=== PATIENT | female | born 1960 | race Caucasian/White ===

== ENCOUNTER 2016-12-24 14:16 | Emergency (ER) | payer OTHER ==
[~2016-12-24] VITALS: Ht 165.1 cm; Wt 100.4 kg
[~2016-12-24 14:16] MED LIST: ADVA500A INH; ATOR10TA15 PO; B-COINJ IM; CELE50CA PO; ERGO1CAP10 PO; FEXO1TAB97 PO; IBUP800T23 PO; LYRI75CA PO; MONT10TA2 PO; ROBA500T PO; TRIA1SPR5 EACH NARE; VENL75TA PO
[2016-12-24 14:38] VITALS: BP 130/80; PULSE 90; RESP 18; TEMP 99; O2SAT 95
[2016-12-24] MEDS ORDERED: TETANUS/DIPHTHERIA TOXOID ADULT 0.5 ML VIAL IM ONE (15:45)
--- NOTE | 2016-12-24 16:08 | PD ---
HPI Chief Complaint: Laceration/Skin Injury Time Seen by Provider: 16:06 Travel History International Travel<30 days: No Contact w/Intl Traveler<30days: No Traveled to known affect area: No History of Present Illness HPI 56-year-old female presents to the emergency room for evaluation of laceration to her left hand. Patient states she was trying to cut off the ring from a plastic bottle with a knife when she slipped and stabbed her hand. She reports immediate pain and bleeding. She rinsed it with water. She is not on any blood thinners. Unknown last tetanus. PFSH Past Medical History Arthritis: Yes Asthma: Yes Diminished Hearing: No Fibromyalgia: Yes Musculoskeletal: Yes (DEGENERATIVE DISC DISEASE) Respiratory: Yes (asthma) Tetanus Vaccination: Unknown Influenza Vaccination: Yes ?: Not Past Surgical History Cholecystectomy: Yes Hysterectomy: Yes Tonsillectomy: Yes Other Surgery: Yes (EPISIOTOMY REPAIR DUE TO TRAMPOLINE INJURY) Social History Alcohol Use: Yes (RARE) Tobacco Use: No Substance Use: No Allergies-Medications (Allergen,Severity, Reaction): Coded Allergies: Adhesives (Verified Allergy, Intermediate, BLISTERS, 12/24/16) Percodan (Verified Allergy, Mild, NOSE ITCHING, 12/24/16) Reported Meds & Prescriptions Reported Meds & Active Scripts Active Robaxin (Methocarbamol) 500 Mg Tab 500 Mg PO QID PRN Ibuprofen 800 Mg Tab 800 Mg PO Q6HR PRN Reported Nasacort Allergy 24Hr (Triamcinolone Acetonide (Nasal) 55 Mcg/Act Spr 1 [place] EACH NARE HS Atorvastatin (Atorvastatin Calcium) 10 Mg Tab 10 Mg PO HS Singulair (Montelukast Sodium) 10 Mg Tab 10 Mg PO HS Advair Diskus Inh (Fluticasone-Salmeterol Inh) 500-50 Mcg/Blist Aer 1 Puff INH BID Rinse mouth after use. Vitamin B-Complex 100 Inj (B-Complex Vitamins Inj) 1 Inj Inj IM MONTHLY Vitamin D (Ergocalciferol) 50,000 Unit Cap 50,000 Units PO Q7D Andria-D 24 Hour Allergy (Fexofenadine-Pseudoephedrine ER 24 HR) 180-240 [place] 1 Tab PO HS Lyrica (Pregabalin) 75 Mg Cap 75 Mg PO BID Celebrex (Celecoxib) 50 Mg Cap 50 Mg PO DAILY Effexor (Venlafaxine HCl) 75 Mg Tab 75 Mg PO Q12H Review of Systems Except as stated in HPI: all other systems reviewed are Neg Physical Exam Narrative GENERAL: Well-nourished, well-developed female in no acute distress. Afebrile. Ambulatory. SKIN: Warm and dry. There is a 1 cm well-approximated, superficial laceration was full hand between the first and second digit. Hemostasis controlled. HEAD: Normocephalic. EYES: No scleral icterus. No injection or drainage. NECK: Supple, trachea midline. No JVD or lymphadenopathy. Data Data Last Documented VS Vital Signs Date Time Temp Pulse Resp B/P Pulse Ox O2 Delivery O2 Flow Rate FiO2 12/24/16 14:38 99.0 90 18 130/80 95 Orders Tetanus/Diphtheria Tox Adult (Tetanus/Di (12/24/16 15:45) MDM Medical Decision Making Medical Screen Exam Complete: Yes Emergency Medical Condition: Yes Medical Record Reviewed: Yes Differential Diagnosis Laceration versus abrasion versus wound infection Narrative Course 56-year-old female presents to the emergency room for evaluation of left hand laceration that occurred just prior to arrival. Patient slipped while using a knife and stabbed herself in the left dorsal hand between the first and second fingers. Tetanus was updated. Physical exam reveals a well-approximated, superficial, 1 cm laceration. Hemostasis controlled. Area was thoroughly cleansed with Betadine. Wound was approximated and repaired with glue. Patient discharged with wound care instructions and told to follow up with the primary care physician or return for worsening symptoms. She understands and agrees to plan. Diagnosis Primary Impression: Laceration of left hand Qualified Code: S61.412A - Laceration of left hand, initial encounter Referrals: Primary Care Physician Patient Instructions: General Instructions, Laceration (ED) Additional Instructions: Rest and drink plenty of fluids. Keep wound clean and dry. Glue will fall off on its own. Apply triple antibiotic ointment when glue falls off. Follow-up with a primary care physician. Return to the emergency room for worsening symptoms. Disposition: 01 DISCHARGE HOME Condition: Stable Letty Snyder Dec 24, 2016 16:07
== END 2016-12-24 16:22 | disposition home or self-care (01) ==
LOC: PHEFT 14:16
DX: S61.412A Laceration without foreign body of left hand, initial encounter (principal); W26.0XXA Contact with knife, initial encounter; Y93.89 Activity, other specified; Z23 Encounter for immunization
CPT/HCPCS: 12001; 90471; 90714

== ENCOUNTER 2017-03-13 18:00 | Observation (INO) | payer OTHER ==
[~2017-03-13] VITALS: Ht 165.1 cm; Wt 100.0 kg
[2017-03-13 18:20] VITALS: BP 134/79; PULSE 75; RESP 18; TEMP 98.2; O2SAT 100
--- NOTE | 2017-03-13 21:45 | PD ---
HPI Chief Complaint: Chest Pain Time Seen by Provider: 21:25 Travel History International Travel<30 days: No Contact w/Intl Traveler<30days: No Traveled to known affect area: No History of Present Illness HPI 56-year-old female complains of chest pain. Patient states that she started having chest pain this afternoon. Patient states that she was at rest when the chest pain started. Patient states the pain started as sharp pain and turning to aching pain. Patient states that the pain radiated to the right sided jaw and to the right sided chest and left upper back. Patient denies any nausea vomiting diaphoresis. Patient denies any coughing congestion fever chills. Patient has history heart murmur. Patient states that she had stress test done in the late was normal. Patient denies any history of hypertension or diabetes. Patient has history of hyperlipidemia. Patient is a nonsmoker. Patient has family history of heart disease. EMS was called. Patient was given 2 baby aspirin and one nitroglycerin sublingually. Patient states that the chest pain got relief with the medications. Patient states that she is almost pain-free now. PFS Past Medical History Arthritis: Yes Asthma: Yes Diminished Hearing: No Fibromyalgia: Yes Musculoskeletal: Yes (DEGENERATIVE DISC DISEASE) Respiratory: Yes ?: Not LMP: 1998 Past Surgical History Cholecystectomy: Yes Hysterectomy: Yes (PARTIAL) Tonsillectomy: Yes Other Surgery: Yes (EPISIOTOMY REPAIR DUE TO TRAMPOLINE INJURY) Social History Alcohol Use: Yes (RARE) Tobacco Use: No Substance Use: No Allergies-Medications (Allergen,Severity, Reaction): Coded Allergies: Adhesives (Verified Allergy, Intermediate, BLISTERS, 03/13/17) Molds and Smuts (Unverified Allergy, Mild, 03/13/17) JUST MOLD Percodan (Verified Allergy, Mild, NOSE ITCHING, 03/13/17) Reported Meds & Prescriptions Reported Meds & Active Scripts Active Robaxin (Methocarbamol) 500 Mg Tab 500 Mg PO QID PRN Reported Zovirax Topical (Acyclovir) 5% Cream 1 Applic TOPICAL 5 TIMES A DAY PRN x 4 days. Lyrica (Pregabalin) 50 Mg Cap 50 Mg PO TID Metaxalone 800 Mg Tab 800 Mg PO BID Celecoxib 200 Mg Cap 200 Mg PO DAILY Nasacort Allergy 24Hr Nasal [place] (Triamcinolone Acetonide Nasal [place]) 55 Mcg/ Act Spr 1 [place] EACH NARE HS Atorvastatin (Atorvastatin Calcium) 10 Mg Tab 10 Mg PO HS Singulair (Montelukast Sodium) 10 Mg Tab 10 Mg PO HS Advair Diskus Inh (Fluticasone-Salmeterol Inh) 500-50 Mcg/Blist Aer 1 Puff INH BID Rinse mouth after use. Vitamin B-Complex 100 Inj (B-Complex Vitamins Inj) 1 Inj Inj IM MONTHLY Vitamin D (Ergocalciferol) 50,000 Unit Cap 50,000 Units PO Q7D Andria-D 24 Hour Allergy (Fexofenadine-Pseudoephedrine ER 24 HR) 180-240 [place] 1 Tab PO HS Effexor (Venlafaxine HCl) 75 Mg Tab 75 Mg PO Q12H Review of Systems General / Constitutional: No: Fever Eyes: No: Visual changes HENT: No: Headaches Cardiovascular: Positive: Chest Pain or Discomfort Respiratory: No: Shortness of Breath Gastrointestinal: No: Abdominal Pain Genitourinary: No: Dysuria Musculoskeletal: No: Pain Skin: No Rash Neurologic: No: Weakness Psychiatric: No: Depression Endocrine: No: Polydipsia Hematologic/Lymphatic: No: Easy Bruising Physical Exam Narrative GENERAL: Well-nourished, well-developed patient. SKIN: Focused skin assessment warm/dry. HEAD: Normocephalic. EYES: No scleral icterus. No injection or drainage. NECK: Supple, trachea midline. No JVD or lymphadenopathy. CARDIOVASCULAR: Regular rate and rhythm without murmurs, gallops, or rubs. RESPIRATORY: Breath sounds equal bilaterally. No accessory muscle use. GASTROINTESTINAL: Abdomen soft, non-tender, nondistended. MUSCULOSKELETAL: No cyanosis, or edema. BACK: Nontender without obvious deformity. No CVA tenderness. Neurologic exam normal. Data Data Last Documented VS Vital Signs Date Time Temp Pulse Resp B/P Pulse Ox O2 Delivery O2 Flow Rate FiO2 03/13/17 21:51 98.6 71 20 139/71 96 Room Air Orders Electrocardiogram (03/13/17 ) Complete Blood Count With Diff (03/13/17 21:42) Comprehensive Metabolic Panel (03/13/17 21:42) Creatine Kinase (Cpk) (03/13/17 21:42) Troponin I (03/13/17 21:42) Prothrombin Time / Inr (Pt) (03/13/17 21:42) Act Partial Throm Time (Ptt) (03/13/17 21:42) Urinalysis - C+S If Indicated (03/13/17 21:42) Chest, Single Ap (03/13/17 21:42) Iv Access Insert/Monitor (03/13/17 21:42) Ecg Monitoring (03/13/17 21:42) Oximetry (03/13/17 21:42) Labs Laboratory Tests Test 03/13/17 21:45 White Blood Count 6.0 TH/MM3 Red Blood Count 5.00 MIL/MM3 Hemoglobin 12.5 GM/DL Hematocrit 38.1 % Mean Corpuscular Volume 76.3 FL Mean Corpuscular Hemoglobin 25.1 PG Mean Corpuscular Hemoglobin 32.9 % Concent Red Cell Distribution Width 15.8 % Platelet Count 270 TH/MM3 Mean Platelet Volume 9.3 FL Neutrophils (%) (Auto) 64.6 % Lymphocytes (%) (Auto) 26.6 % Monocytes (%) (Auto) 7.4 % Eosinophils (%) (Auto) 1.3 % Basophils (%) (Auto) 0.1 % Neutrophils # (Auto) 3.9 TH/MM3 Lymphocytes # (Auto) 1.6 TH/MM3 Monocytes # (Auto) 0.4 TH/MM3 Eosinophils # (Auto) 0.1 TH/MM3 Basophils # (Auto) 0.0 TH/MM3 CBC Comment DIFF FINAL Differential Comment Prothrombin Time 10.5 SEC Prothromb Time International 1.0 RATIO Ratio Activated Partial 26.6 SEC Thromboplast Time Urine Color YELLOW Urine Turbidity CLEAR Urine pH 6.5 Urine Specific [place] 1.014 Urine Protein NEG mg/dL Urine Glucose (UA) NEG mg/dL Urine Ketones NEG mg/dL Urine Occult Blood NEG Urine Nitrite NEG Urine Bilirubin NEG Urine Urobilinogen LESS THAN 2.0 MG/DL Urine Leukocyte Esterase NEG Urine WBC LESS THAN 1 /hpf Urine Squamous Epithelial <1 /hpf Cells Microscopic Urinalysis Comment CULT NOT INDICATED Sodium Level 142 MEQ/L Potassium Level 3.9 MEQ/L Chloride Level 106 MEQ/L Carbon Dioxide Level 28.1 MEQ/L Anion Gap 8 MEQ/L Blood Urea Nitrogen 18 MG/DL Creatinine 0.77 MG/DL Estimat Glomerular Filtration 77 ML/MIN Rate Random Glucose 87 MG/DL Calcium Level 9.3 MG/DL Total Bilirubin 0.3 MG/DL Aspartate Amino Transf 27 U/L (AST/SGOT) Alanine Aminotransferase 39 U/L (ALT/SGPT) Alkaline Phosphatase 89 U/L Total Creatine Kinase 101 U/L Troponin I LESS THAN 0.02 NG/ML Total Protein 7.3 GM/DL Albumin 3.9 GM/DL MDM Medical Decision Making Medical Screen Exam Complete: Yes Emergency Medical Condition: Yes Interpretation(s) 22:45 PM. EKG shows sinus rhythm nonspecific ST-T wave changes. Last Impressions Chest X-Ray 03/13/172141 Signed Impressions: Service Date/Time: Monday, March 13, 2017 21:46 - CONCLUSION: 1. No acute findings. Tortuous aorta. Burt Valdivia MD 22:45 PM. CBC within normal limit. CMP within normal limit. Cardiac enzymes are normal. UA is negative. Differential Diagnosis Differential diagnosis including musculoskeletal, angina, SC, PE, pneumothorax. Narrative Course 56-year-old female with chest pain. Patient states the chest and got relief with aspirin and nitroglycerin. Patient will be admitted to the chest pain center. Diagnosis Primary Impression: Chest pain Qualified Code: R07.9 - Chest pain, unspecified type Admitting Information Admitting Physician Requests: Angel Martinez MD Mar 13, 2017 21:45
[2017-03-13 21:51] VITALS: BP 139/71; PULSE 71; RESP 20; TEMP 98.6; O2SAT 96
[2017-03-13 22:06] LABS: AUTOMATED NEUTROPHIL # 3.9 TH/MM3 (1.8-7.7); BASOPHIL % 0.1 % (0.0-2.0); EOSINOPHIL # 0.1 TH/MM3 (0-0.4); EOSINOPHIL % 1.3 % (0.0-4.0); HEMATOCRIT 38.1 % (35.0-46.0); HEMO FLAGS DIFF FINAL; LYMPH % 26.6 % (9.0-44.0); LYMPHOCYTE # 1.6 TH/MM3 (1.0-4.8); MEAN CELL VOLUME 76.3 FL (80.0-100.0); MEAN CORPUSCULAR HEMOGLOBIN 25.1 PG (27.0-34.0); MEAN CORPUSCULAR HGB CONC 32.9 % (32.0-36.0); MONO % 7.4 % (0.0-8.0); NEUT % 64.6 % (16.0-70.0); PLATELET COUNT 270 TH/MM3 (150-450); RED CELL DISTRIBUTION WIDTH 15.8 % (11.6-17.2)
[2017-03-13 22:07] LABS: BLOOD, URINE NEG (NEG); GLUCOSE,URINE NEG (NEG); KETONE, URINE NEG (NEG); NITRITE,URINE NEG (NEG); PH, URINE 6.5 (5.0-8.5); SQUAMOUS EPITHELIAL CELL URINE <1 /hpf (0-5); URINE COLOR YELLOW (YELLW/STRAW)
[2017-03-13 22:08] LABS: COMMENT (UR) CULT NOT INDICATED; CULTURE IF INDICATED CULT NOT INDICATED
[2017-03-13 22:17] LABS: APTT (PATIENT) 26.6 SEC (24.3-30.1); PROTHROMBIN TIME - PATIENT 10.5 SEC (9.8-11.6)
--- NOTE | 2017-03-13 22:21 | RADRPT ---
EXAM DATE/TIME: 03/13/2017 21:46 [facility] COMPARISON: No previous studies available for comparison. INDICATIONS : Chest and jaw pain that started today. MEDICAL HISTORY : Asthma, rib fractures. SURGICAL HISTORY : None. ENCOUNTER: Initial ACUITY: 1 day PAIN SCORE: 10/10 LOCATION: Bilateral chest FINDINGS: A single view of the chest demonstrates the lungs to be symmetrically aerated without evidence of mas s, infiltrate or effusion. The cardiomediastinal contours are unremarkable except tortuous aorta. O sseous structures are intact. CONCLUSION: 1. No acute findings. Tortuous aorta. Burt Valdivia MD on March 13, 2017 at 22:18 Board Certified Radiologist. This report was verified electronically.
[2017-03-13] MEDS ORDERED: ZOVI5CRE3 TOPICAL (22:25)
[2017-03-13] MEDS ORDERED: CELE1CAP8 PO (22:25)
[2017-03-13] MEDS ORDERED: LYRI50CA PO (22:25)
[2017-03-13] MEDS ORDERED: META1TAB19 PO (22:25)
[2017-03-13 22:36] LABS: ALT (GPT) 39 U/L (10-53); ANION GAP 8 MEQ/L (5-15); AST (GOT) 27 U/L (15-37); BICARBONATE 28.1 MEQ/L (21.0-32.0); BLOOD UREA NITROGEN 18 MG/DL (7-18); CHLORIDE 106 MEQ/L (98-107); GLOMERULAR FILTRATION RATE 77 ML/MIN (>89); POTASSIUM 3.9 MEQ/L (3.5-5.1); SODIUM (NA) 142 MEQ/L (136-145)
[2017-03-13 22:40] LABS: ALKALINE PHOSPHATASE 89 U/L (45-117); CREATINE KINASE 101 U/L (26-192); TOTAL BILIRUBIN ADULT 0.3 MG/DL (0.2-1.0)
[2017-03-13] MEDS ORDERED: NITROGLYCERIN 0.4 MG SL 25 TABS/BTL SL PRN (23:00)
[2017-03-13] MEDS ORDERED: ONDANSETRON HCL 4 MG/2 ML VIAL IV PRN (23:00)
[2017-03-13] MEDS ORDERED: ACETAMINOPHEN 500 MG CPLT PO PRN (23:00)
--- NOTE | 2017-03-13 23:04 | EKG ---
Date Performed: 03/13/2017 Time Performed: 18:30:20 PTAGE: 56 years EKG: Sinus rhythm NORMAL ECG NO PREVIOUS TRACING DOCTOR: Esteban Buchanan Interpretating Date/Time 03/13/2017 23:03:22
[2017-03-14] VITALS (9 sets, daily range): BP systolic 115–140; BP diastolic 62–88; PULSE 70–88; RESP 18–21; TEMP 97.9–98.7; O2SAT 92–99
[2017-03-14] MEDS ORDERED: VENLAFAXINE HCL XR 75 MG CAP PO ONE (00:45)
[2017-03-14 00:54] LABS: CREATINE KINASE 92 U/L (26-192)
[2017-03-14 03:55] LABS: CREATINE KINASE 88 U/L (26-192)
[2017-03-14] MEDS ORDERED: VENLAFAXINE HCL 75 MG TAB PO SCH (09:30)
[2017-03-14] MEDS ORDERED: RESP: ALBUTEROL 2.5 MG/IPRATROPIUM 0.5 MG NEB (PRN) INH (09:30)
[2017-03-14] MEDS ORDERED: METHOCARBAMOL 500 MG TAB PO PRN (09:30)
--- NOTE | 2017-03-14 10:32 | HHI.HP ---
[facility] Primary Care Physician Brian Wheeler MD Chief Complaint Chest pain History of Present Illness This is a 56-year-old female that presents to the ED with a complaint of developing a left-sided sharp chest pain after waking up. She also same time felt the discomfort of the right jaw. After about 20 minutes the chest discomfort migrated more medially and the jaw pain migrated also more to the chin. She was concerned so called [facility]. Symptoms have since resolved. She had no shortness red nausea diaphoresis. She then states she's had these symptoms 3 times since October however they did not last nearly as long. States she's been under a lot of stress. She recently moved here from [place] in October. Denies recent illness. Denies fevers or chills. Review of Systems General: Patient denies fevers, chills recent, and recent travel HEENT: Patient denies headache, sore throat, difficulty swallowing. Cardiovascular: Has the chest discomfort as mentioned above. Denies sensation of heart beating rapidly or irregularly. No syncope. Respiratory: Denies shortness of breath or inspirational chest discomfort. Denies coughing wheezing or hemoptysis. GI: Patient denies nausea, vomiting, diarrhea, abdominal pain, bloody stools. Musculoskeletal: Patient denies joint pain or edema. Denies calf pain or edema. Neurovascular: Patient denies numbness, tingling, weakness in extremities. Denies headache. Endocrine: Denies polyuria and polydipsia. Hematologic: Denies easy bruising. Skin: Denies rash or itching. Past Family Social History Allergies: Coded Allergies: Adhesives (Verified Allergy, Intermediate, BLISTERS, 03/13/17) Molds and Smuts (Unverified Allergy, Mild, 03/13/17) JUST MOLD Percodan (Verified Allergy, Mild, NOSE ITCHING, 03/13/17) Past Medical History Asthma, fibromyalgia, and hyperlipidemia. Denies hypertension, diabetes, and known CAD. Past Surgical History Partial hysterectomy, cholecystectomy, tonsillectomy, right hip. Reported Medications Reported Meds & Active Scripts Active Robaxin (Methocarbamol) 500 Mg Tab 500 Mg PO QID PRN Reported Zovirax Topical (Acyclovir) 5% Cream 1 Applic TOPICAL 5 TIMES A DAY PRN x 4 days. Lyrica (Pregabalin) 50 Mg Cap 50 Mg PO TID Metaxalone 800 Mg Tab 800 Mg PO BID Celecoxib 200 Mg Cap 200 Mg PO DAILY Nasacort Allergy 24Hr Nasal [place] (Triamcinolone Acetonide Nasal [place]) 55 Mcg/ Act Spr 1 [place] EACH NARE HS Atorvastatin (Atorvastatin Calcium) 10 Mg Tab 10 Mg PO HS Singulair (Montelukast Sodium) 10 Mg Tab 10 Mg PO HS Advair Diskus Inh (Fluticasone-Salmeterol Inh) 500-50 Mcg/Blist Aer 1 Puff INH BID Rinse mouth after use. Vitamin B-Complex 100 Inj (B-Complex Vitamins Inj) 1 Inj Inj IM MONTHLY Vitamin D (Ergocalciferol) 50,000 Unit Cap 50,000 Units PO Q7D Andria-D 24 Hour Allergy (Fexofenadine-Pseudoephedrine ER 24 HR) 180-240 [place] 1 Tab PO HS Effexor (Venlafaxine HCl) 75 Mg Tab 75 Mg PO Q12H Active Ordered Medications Current Medications Medications (Trade) Dose Ordered Sig/Rafaela Route Start Time Stop Time Status Last Admin (Tylenol) 500 mg Q4H PRN PO 03/13/17 23:00 (Zofran Inj) 4 mg Q6H PRN IV 03/13/17 23:00 (Nitrostat Sl) 0.4 mg Q5M PRN SL 03/13/17 23:00 (Lipitor) 10 mg HS PO 03/14/17 21:00 (Skelaxin) 800 mg BID PO 03/14/17 21:00 (Robaxin) 500 mg QID PRN PO 03/14/17 09:30 (Lyrica) 50 mg TID PO 03/14/17 13:00 (Effexor) 75 mg Q12H PO 03/14/17 09:30 Family History Her mother has CAD. Social History Patient is a nonsmoker. Physical Exam Vital Signs Vital Signs Date Time Temp Pulse Resp B/P Pulse Ox O2 Delivery O2 Flow Rate FiO2 03/14/17 08:32 87 03/14/17 07:22 97.9 71 18 115/62 96 03/14/17 05:38 98.5 76 21 119/69 92 03/14/17 02:43 72 03/14/17 02:23 98.2 70 20 134/84 93 03/14/17 01:57 98.4 88 20 140/88 99 Room Air 03/14/17 01:53 98 21 03/13/17 21:51 98.6 71 20 139/71 96 Room Air 03/13/17 21:51 96 Room Air 03/13/17 21:51 71 20 139/71 96 Room Air 03/13/17 18:20 98.2 75 18 134/79 100 Room Air Physical Exam GENERAL: This is a well-nourished, well-developed patient, in no apparent distress. Patient speaks in clear complete sentences. Patient is pleasant. HEENT: Head is atraumatic and normocephalic. Neck is supple without lymphadenopathy and trachea is midline. No JVD or carotid bruits. CARDIOVASCULAR: Regular rate and rhythm without murmurs, gallops, or rubs. RESPIRATORY: Clear to auscultation. Breath sounds equal bilaterally. No wheezes , rales, or rhonchi. Chest wall is tender. No use of accessory muscles. GASTROINTESTINAL: Abdomen is nontender, nondistended. Abdomen soft. No obvious pulsatile mass or bruit. No CVA tenderness. Strong femoral pulses bilaterally. Normal bowel sounds in all quadrants. MUSCULOSKELETAL: Patient is moving upper and lower extremities freely. No calf tenderness or edema, no Homans sign. Strong pulses in upper and lower extremities. NEUROLOGICAL: Patient is alert and oriented. Cranial nerves 2-12 are grossly intact. No focal deficits and speech is clear. SKIN: No rash and turgor is normal. Laboratory Laboratory Tests Test 03/13/17 03/14/17 03/14/17 03/14/17 21:45 00:15 03:20 09:45 White Blood Count 6.0 Red Blood Count 5.00 Hemoglobin 12.5 Hematocrit 38.1 Mean Corpuscular Volume 76.3 Mean Corpuscular Hemoglobin 25.1 Mean Corpuscular Hemoglobin 32.9 Concent Red Cell Distribution Width 15.8 Platelet Count 270 Mean Platelet Volume 9.3 Neutrophils (%) (Auto) 64.6 Lymphocytes (%) (Auto) 26.6 Monocytes (%) (Auto) 7.4 Eosinophils (%) (Auto) 1.3 Basophils (%) (Auto) 0.1 Neutrophils # (Auto) 3.9 Lymphocytes # (Auto) 1.6 Monocytes # (Auto) 0.4 Eosinophils # (Auto) 0.1 Basophils # (Auto) 0.0 CBC Comment DIFF FINAL Differential Comment Prothrombin Time 10.5 Prothromb Time International 1.0 Ratio Activated Partial 26.6 Thromboplast Time Urine Color YELLOW Urine Turbidity CLEAR Urine pH 6.5 Urine Specific [place] 1.014 Urine Protein NEG Urine Glucose (UA) NEG Urine Ketones NEG Urine Occult Blood NEG Urine Nitrite NEG Urine Bilirubin NEG Urine Urobilinogen LESS THAN 2.0 Urine Leukocyte Esterase NEG Urine WBC LESS THAN 1 Urine Squamous Epithelial <1 Cells Microscopic Urinalysis Comment CULT NOT INDICATED Sodium Level 142 Potassium Level 3.9 Chloride Level 106 Carbon Dioxide Level 28.1 Anion Gap 8 Blood Urea Nitrogen 18 Creatinine 0.77 Estimat Glomerular Filtration 77 Rate Random Glucose 87 Calcium Level 9.3 Total Bilirubin 0.3 Aspartate Amino Transf 27 (AST/SGOT) Alanine Aminotransferase 39 (ALT/SGPT) Alkaline Phosphatase 89 Total Creatine Kinase 101 92 88 Troponin I LESS THAN 0.02 LESS THAN 0.02 LESS THAN 0.02 Total Protein 7.3 Albumin 3.9 D-Dimer Quantitative (PE/DVT) 0.28 Result Diagram: 03/13/17214403/13/172144 Imaging Last 24 hours Impressions Chest X-Ray 03/13/172141 Signed Impressions: Service Date/Time: Monday, March 13, 2017 21:46 - CONCLUSION: 1. No acute findings. Tortuous aorta. Burt Valdivia MD Course EKGs have sinus rhythm without significant ST segment depressions or elevations. Assessment and Plan Assessment and Plan * Chest pain: Patient has had serial cardiac enzymes and EKGs for ruling out purposes. She has been seen by Dr. Lucas Carmona of cardiology in the chest pain center and will undergo a Lexiscan. She'll likely be discharged home if her stress test were to be nonischemic. She should follow back with a primary care physician. * Hyperlipidemia: Continue current medication. * Asthma: Patient's lungs are clear. She will have DuoNeb's when necessary while in the chest pain center and she is to resume her home medication at discharge. * Fibromyalgia: Continue current medications. Patient is stable at this time. She is agreeable to this plan. Buddy Burden Mar 14, 2017 10:32
[2017-03-14] MEDS ORDERED: VENLAFAXINE HCL XR 75 MG CAP PO SCH (12:00)
--- NOTE | 2017-03-14 12:51 | EKG ---
Date Performed: 03/14/2017 Time Performed: 03:00:24 PTAGE: 56 years EKG: Sinus rhythm POSSIBLE LEFT ATRIAL ENLARGEMENT BORDERLINE ECG PREVIOUS TRACING : 03/14/2017 00.19 Since previous tracing, no significant change noted DOCTOR: Lucas Carmona Interpretating Date/Time 03/14/2017 12:50:45
--- NOTE | 2017-03-14 12:52 | EKG ---
Date Performed: 03/14/2017 Time Performed: 00:19:36 PTAGE: 56 years EKG: Sinus rhythm NORMAL ECG PREVIOUS TRACING : 03/13/2017 18.30 Since previous tracing, no significant change noted DOCTOR: Lucas Carmona Interpretating Date/Time 03/14/2017 12:51:08
[2017-03-14] MEDS ORDERED: REGADENOSON INJ 0.4 MG/5 ML SYR ONE (12:53)
[2017-03-14] MEDS ORDERED: PREGABALIN 25 MG CAP PO SCH (13:00)
--- NOTE | 2017-03-14 14:56 | RADRPT ---
EXAM DATE/TIME: 03/14/2017 12:15 [facility] COMPARISON: No previous studies available for comparison. INDICATIONS : Right chest pain radiating to the right jaw. Angina. DOSE: 34.8 mCi Tc99m Myoview at stress. 11.0 mCi Tc99m Myoview at rest. 0.4 mg Lexiscan STRESS SYMPTOMS: Shortness of breath. EJECTION FRACTION: > 70% MEDICAL HISTORY : Hypercholesterolemia. Heart murmor, herpes and asthma. SURGICAL HISTORY : Hysterectomy. Tubal ligation. ENCOUNTER: Initial ACUITY: 1 day PAIN SCALE: 3/10 LOCATION: Right chest TECHNIQUE: The patient underwent pharmacologic stress with infusion of prescribed dose. Continuous ECG tracing was monitored during stress. Gated SPECT imaging was performed after stress and conventional SPECT i maging was performed at rest. The examination was performed on a SPECT/CT scanner, both attenuation and non-corrected datasets were reviewed. FINDINGS: DISTRIBUTION: The maximum perfused segment at stress is in the inferoseptal wall. PERFUSION STUDY: The pattern of perfusion at stress is within normal limits, with regional variation in perfusion with in 30%. Impression perfusion at stress and rest is unchanged. Summed stress score is 3. GATED STUDY: There is intact wall motion and thickening without hypokinetic or dyskinetic segments. CONCLUSION: 1. No evidence of stress-induced ischemia. 2. Intact wall motion with 70% ejection fraction. RISK CATEGORY: Low (<1% Annual Mortality Rate) Luis Mednez MD on March 14, 2017 at 14:36 Board Certified Radiologist. This report was verified electronically.
--- NOTE | 2017-03-14 15:18 | HHI.DCPOC ---
Discharge Care Plan Diagnosis: (1) Chest pain (2) Hyperlipidemia Goals to Promote Your Health * To prevent worsening of your condition and complications * To maintain your health at the optimal level Directions to Meet Your Goals Take your medications as prescribed Follow your dietary instruction Follow activity as directed Keep your appointments as scheduled Take your immunizations and boosters as scheduled If your symptoms worsen call your PCP, if no PCP go to Urgent Care Center or Emergency Room Smoking is Dangerous to Your Health. Avoid second hand smoke Call the 24-hour hour crisis hotline for domestic abuse at Buddy Burden Mar 14, 2017 15:18
[2017-03-14] MEDS ORDERED: ATORVASTATIN 10 MG TAB PO SCH (21:00)
[2017-03-14] MEDS ORDERED: METAXALONE 800 MG TAB PO SCH (21:00)
--- NOTE | 2017-03-15 11:20 | TR ---
Date Performed: 03/14/2017 Time Performed: 13:09:42 DOCTOR: Fortino Armenta DRUG LIST: CLINICAL HISTORY: ANGINA REASON FOR TEST: Angina REASON FOR ENDING: OBSERVATION: CONCLUSION: Lexiscan stress test was performed under standard four minute protocol. Radionucl[place] e was injected one minute prior to ending the test. No electrocardiographic abormalities were present to suggest ischemia. Nuclear imaging and interpretation are pending. COMMENTS:
== END 2017-03-14 17:30 | disposition home or self-care (01) ==
LOC: NEPC 18:00 → NEDA 22:51 → NEPGCP 03-14 02:18
PROVIDERS: ADMIT Internal Medicine Interventional Cardiology; ATTEND Internal Medicine Interventional Cardiology
DX: R07.89 Other chest pain (principal); M19.90 Unspecified osteoarthritis, unspecified site; J45.909 Unspecified asthma, uncomplicated; M79.7 Fibromyalgia; E78.5 Hyperlipidemia, unspecified; Z88.5 Allergy status to narcotic agent; Z88.8 Allergy status to other drugs, medicaments and biological substances; Z91.048 Other nonmedicinal substance allergy status; Z82.49 Family history of ischemic heart disease and other diseases of the circulatory system
CPT/HCPCS: 71010; 78452; 80053; 81001; 82550; 84484; 85025; 85379; 85610; 85730; 93005; 93017; 99285; A9502; G0378; J2785

== ENCOUNTER → 2017-03-26 | Outpatient (CLI) | payer OTHER ==
[~2017-03-26] MED LIST changes: +ALBU.5I NEB; +CEFU1TAB20 PO; +CELE1CAP8 PO; -CELE50CA PO; +CLON0.5T PO; +GUAI100S5 PO; +HYDR-3516 PO; -IBUP800T23 PO; +LACTCAP8 PO; +LEVO750T3 PO; +LYRI50CA PO; -LYRI75CA PO; +META1TAB19 PO; +METH750T PO; +MUCI30TA2 PO; +PRED10 PO; +PRED20 PO; +TYLE325T PO; +VITA100064 PO; +ZOVI5CRE3 TOPICAL
--- NOTE | 2017-04-02 10:10 | RSPPFT ---
DATE OF PROCEDURE: 03/26/17 COMMENTS: Spirometry with FVC of 3.3, FEV1 of 2.4, FEV1/FVC ratio at 72%. A non-significant response to acutely inhaled bronchodilator noted. Slow vital capacity is 89%. TLC is 100%. Diffusion capacity is normal. IMPRESSION: 1. Moderate airways obstruction. 2. Non-significant response to acutely inhaled bronchodilator. 3. No evidence of airways restriction. 4. Normal diffusion capacity.
== END ==
LOC: HRSP 11:59
PROVIDERS: ATTEND Internal Medicine Sleep Medicine
DX: R06.89 Other abnormalities of breathing (principal)
CPT/HCPCS: 94060; 94726; 94729

== ENCOUNTER 2017-05-23 14:08 | Emergency (ER) | payer OTHER ==
[~2017-05-23] VITALS: Ht 165.1 cm; Wt 99.4 kg
[~2017-05-23 14:08] MED LIST changes: -ALBU.5I NEB; -CEFU1TAB20 PO; -CLON0.5T PO; -GUAI100S5 PO; -HYDR-3516 PO; -LACTCAP8 PO; -LEVO750T3 PO; -METH750T PO; -MUCI30TA2 PO; -PRED10 PO; -PRED20 PO; -TYLE325T PO; -VITA100064 PO
[2017-05-23 14:18] VITALS: BP 136/80; PULSE 100; RESP 14; TEMP 98.4; O2SAT 94
[2017-05-23] MEDS ORDERED: METH750T PO (14:48)
[2017-05-23] MEDS ORDERED: VITA100064 PO (14:48)
[2017-05-23] MEDS ORDERED: CEFU1TAB20 PO (14:53)
[2017-05-23] MEDS ORDERED: CLON0.5T PO (14:53)
[2017-05-23] MEDS ORDERED: ALBU.5I NEB (14:53)
[2017-05-23] MEDS ORDERED: MUCI30TA2 PO (14:53)
[2017-05-23] MEDS ORDERED: HYDR-3516 PO (14:53)
[2017-05-23] MEDS ORDERED: GUAI100S5 PO (14:53)
[2017-05-23] MEDS ORDERED: TYLE325T PO (14:53)
[2017-05-23] MEDS ORDERED: PRED10 PO (14:53)
[2017-05-23] MEDS ORDERED: LACTCAP8 PO (14:53)
--- NOTE | 2017-05-23 15:10 | PD ---
HPI Chief Complaint: Cold / Flu Symptoms Time Seen by Provider: 14:56 Travel History International Travel<30 days: No Contact w/Intl Traveler<30days: No Traveled to known affect area: No History of Present Illness HPI This is a 56-year-old female who has a history of asthma who presents to the emergency department with 1 week of increasing wheezing, productive cough with clear sputum, sore throat and myalgias. Her primary care physician gave her a dose of IM steroids in the office and put her on a prednisone taper. She also has been on Cefazolin but her symptoms are not improving. She's been having use her inhaler every 4 hours and she feels short of breath when she exerts herself. She denies any chest pain. Her has also been sick with a sore throat. PFSH Past Medical History Arthritis: Yes Asthma: Yes (rad) Cardiovascular Problems: Yes (heart murmor) High Cholesterol: Yes Diminished Hearing: No Fibromyalgia: Yes Genitourinary: Yes (Genital Herpes) Musculoskeletal: Yes (DEGENERATIVE DISC DISEASE) Neurologic: Yes (Fibromyalgia, Degenerative disc disease) Respiratory: Yes (Sleep Apnea) Immunizations Current: Yes Tetanus Vaccination: < 5 Years Influenza Vaccination: Yes ?: Not Dilation and Curettage (D&C): Yes (1998) Tubal Ligation: Yes (1998) Past Surgical History Cholecystectomy: Yes (2009) Gynecologic Surgery: Yes (D&C 1998, partial hysterectomy 1998 perineum repair) Hysterectomy: Yes (PARTIAL) Tonsillectomy: Yes Other Surgery: Yes (EPISIOTOMY REPAIR DUE TO TRAMPOLINE INJURY fiberotomy sesamoidectomy lt) Social History Alcohol Use: No Tobacco Use: No Substance Use: No Allergies-Medications (Allergen,Severity, Reaction): Coded Allergies: Adhesives (Verified Allergy, Intermediate, BLISTERS, 03/13/17) Molds and Smuts (Unverified Allergy, Mild, 03/13/17) JUST MOLD Percodan (Verified Allergy, Mild, NOSE ITCHING, 03/13/17) Reported Meds & Prescriptions Reported Meds & Active Scripts Active Reported Clonazepam 0.5 Mg Tab 0.5 Mg PO BID Hydrocodone-Acetaminophen 5-325 mg Tab 1-2 Tab PO Q6H PRN Guaifenesin-Codeine Liq 100-10 Mg/5 Ml Soln 5 Ml PO Q4H PRN Tylenol (Acetaminophen) 325 Mg Tab 650 Mg PO Q4H PRN Mucinex DM (Dextromethorphan-Guaifenesin) 30-600 Mg Tab 1 Tab PO Q4HR PRN Albuterol Neb (Albuterol Sulfate) 2.5 Mg/0.5 Ml Neb 2.5 Mg NEB Q4HR NEB PRN Note: The Albuterol Sulfate Inhalation Solution is concentrated and must be diluted. Read complete instructions carefully before using. Prednisone 10 Mg Tab 10 Mg PO DIRECTED Cefuroxime (Cefuroxime Axetil) 500 Mg Tab 500 Mg PO BID Probiotic (Lactobacillus Acidophilus) 1 Cap Cap 1 Cap PO QID Methocarbamol 750 Mg Tab 750 Mg PO TID Vitamin D (Cholecalciferol) 1,000 Unit Tab 50,000 Units PO WEEKLY Celecoxib 200 Mg Cap 200 Mg PO DAILY Nasacort Allergy 24Hr Nasal [place] (Triamcinolone Acetonide Nasal [place]) 55 Mcg/ Act Spr 1 [place] EACH NARE HS Atorvastatin (Atorvastatin Calcium) 10 Mg Tab 10 Mg PO HS Singulair (Montelukast Sodium) 10 Mg Tab 10 Mg PO HS Vitamin B-Complex 100 Inj (B-Complex Vitamins Inj) 1 Inj Inj IM MONTHLY Effexor (Venlafaxine HCl) 75 Mg Tab 75 Mg PO Q12H Review of Systems Except as stated in HPI: all other systems reviewed are Neg Physical Exam Narrative GENERAL:Well appearing, no acute distress SKIN: Focused skin assessment warm and dry. HEAD: Atraumatic. Normocephalic. EYES: Pupils equal and round. No injection or drainage. ENT: Moist mucous membranes NECK: Trachea midline. CARDIOVASCULAR: Regular rate and rhythm. No murmur appreciated. Trace edema in the bilateral lower extremities. RESPIRATORY: Diffuse wheezing, cough present, speaking full sentences GASTROINTESTINAL: Abdomen soft, non-tender, nondistended. MUSCULOSKELETAL: No obvious deformities. NEUROLOGICAL: Awake and alert. No obvious cranial nerve deficits. Moving all extremities. PSYCHIATRIC: Appropriate mood and affect; insight and judgment normal. Data Data Last Documented VS Vital Signs Date Time Temp Pulse Resp B/P Pulse Ox O2 Delivery O2 Flow Rate FiO2 05/23/17 14:39 94 Room Air 05/23/17 14:18 98.4 100 14 136/80 Orders Complete Blood Count With Diff (05/23/17 15:04) Comprehensive Metabolic Panel (05/23/17 15:04) B-Type Natriuretic Peptide (05/23/17 15:04) ^ Insert Iv (05/23/17 15:04) Methylprednisolone So Succ Inj (Solumedr (05/23/17 15:15) Albuterol-Ipratropium Neb (Duoneb Neb) (05/23/17 15:15) Chest, Pa & Lat (05/23/17 ) Labs Laboratory Tests Test 05/23/17 15:00 White Blood Count 12.1 TH/MM3 Red Blood Count 5.48 MIL/MM3 Hemoglobin 13.1 GM/DL Hematocrit 41.8 % Mean Corpuscular Volume 76.2 FL Mean Corpuscular Hemoglobin 23.9 PG Mean Corpuscular Hemoglobin 31.4 % Concent Red Cell Distribution Width 15.6 % Platelet Count 302 TH/MM3 Mean Platelet Volume 8.3 FL Neutrophils (%) (Auto) 83.3 % Lymphocytes (%) (Auto) 9.8 % Monocytes (%) (Auto) 4.6 % Eosinophils (%) (Auto) 0.7 % Basophils (%) (Auto) 1.6 % Neutrophils # (Auto) 10.0 TH/MM3 Lymphocytes # (Auto) 1.2 TH/MM3 Monocytes # (Auto) 0.6 TH/MM3 Eosinophils # (Auto) 0.1 TH/MM3 Basophils # (Auto) 0.2 TH/MM3 CBC Comment AUTO DIFF Differential Comment AUTO DIFF CONFIRMED Sodium Level 143 MEQ/L Potassium Level 4.2 MEQ/L Chloride Level 107 MEQ/L Carbon Dioxide Level 27.3 MEQ/L Anion Gap 9 MEQ/L Blood Urea Nitrogen 23 MG/DL Random Glucose 112 MG/DL Calcium Level 8.9 MG/DL Albumin 3.4 GM/DL [facility] Medical Decision Making Medical Screen Exam Complete: Yes Emergency Medical Condition: Yes Interpretation(s) afebrile, tachycardic leukocytosis Differential Diagnosis COPD exacerbation, pneumonia, congestive heart failure, pneumothorax Narrative Course This is a 56-year-old female who has a history of asthma who presents to the emergency department with increasing wheezing and productive cough despite treatment with steroids and antibiotics. She is diffusely wheezing but is not hypoxic. Labs will be obtained, chest x-ray will be obtained, patient will receive serial DuoNeb's and a dose of steroids here. I think if she maintains a normal oxygen saturation and she can be discharged home. I would consider raising her steroid Dosepak to 40 mg per day for the next 5 days and changing her antibiotic therapy to Levaquin. She may need subspecialty consultation with the animal sticker as an outpatient. Madeleine Liriano MD May 23, 2017 15:10
[2017-05-23] MEDS: RESP: ALBUTEROL 2.5 MG/IPRATROPIUM 0.5 MG NEB (SCH) INH (15:11)
[2017-05-23] MEDS ORDERED: methylPREDNISolone SOD SUCC 125 MG/2 ML VIAL IV PUSH ONE (15:15)
[2017-05-23 15:21] LABS: BASOPHIL # 0.2 TH/MM3 (0-0.2); BASOPHIL % 1.6 % (0.0-2.0); EOSINOPHIL # 0.1 TH/MM3 (0-0.4); EOSINOPHIL % 0.7 % (0.0-4.0); HEMATOCRIT 41.8 % (35.0-46.0); LYMPH % 9.8 % (9.0-44.0); LYMPHOCYTE # 1.2 TH/MM3 (1.0-4.8); MEAN CELL VOLUME 76.2 FL (80.0-100.0); MEAN CORPUSCULAR HEMOGLOBIN 23.9 PG (27.0-34.0); MEAN CORPUSCULAR HGB CONC 31.4 % (32.0-36.0); MONO % 4.6 % (0.0-8.0); NEUT % 83.3 % (16.0-70.0); PLATELET COUNT 302 TH/MM3 (150-450); RED BLOOD COUNT 5.48 MIL/MM3 (4.00-5.30); RED CELL DISTRIBUTION WIDTH 15.6 % (11.6-17.2); WHITE BLOOD COUNT 12.1 TH/MM3 (4.0-11.0)
[2017-05-23 15:49] LABS: HEMO FLAGS AUTO DIFF
[2017-05-23 15:51] LABS: SCAN/DIFF AUTO DIFF CONFIRMED
[2017-05-23 15:52] LABS: CHLORIDE 107 MEQ/L (98-107); POTASSIUM 4.2 MEQ/L (3.5-5.1); SODIUM (NA) 143 MEQ/L (136-145)
[2017-05-23 15:55] LABS: ANION GAP 9 MEQ/L (5-15); BICARBONATE 27.3 MEQ/L (21.0-32.0)
[2017-05-23 15:56] LABS: BLOOD UREA NITROGEN 23 MG/DL (7-18)
[2017-05-23 15:58] LABS: ALT (GPT) 111 U/L (10-53)
[2017-05-23 15:59] LABS: AST (GOT) 72 U/L (15-37); GLOMERULAR FILTRATION RATE 68 ML/MIN (>89)
[2017-05-23 16:00] LABS: TOTAL BILIRUBIN ADULT 0.3 MG/DL (0.2-1.0)
[2017-05-23 16:01] LABS: ALKALINE PHOSPHATASE 98 U/L (45-117)
--- NOTE | 2017-05-23 16:25 | RADRPT ---
EXAM DATE/TIME: 05/23/2017 15:51 [place] COMPARISON: No previous studies available for comparison. INDICATIONS : Short of breath and cough. MEDICAL HISTORY : Asthma. SURGICAL HISTORY : ENCOUNTER: Initial ACUITY: 1 week PAIN SCORE: 0/10 LOCATION: chest FINDINGS: PA and lateral views of the chest demonstrate the lungs to be symmetrically aerated without evidence of mass, infiltrate or effusion. The cardiomediastinal contours are unremarkable. Mild compression deformities involving T12 and L1 of indeterminate ages. CONCLUSION: No acute cardiopulmonary disease. Mild compression deformities involving T12 and L1 of indeterminate ages. Cornell Padilla MD on May 23, 2017 at 16:21 Board Certified Radiologist. This report was verified electronically.
[2017-05-23] MEDS ORDERED: LEVO750T3 PO (16:36)
[2017-05-23] MEDS ORDERED: PRED20 PO (16:36)
--- NOTE | 2017-05-23 16:50 | PD ---
Physical Exam Time Seen by Provider: 16:20 Narrative This patient was signed out to me pending x-ray results, the previous providers note for details. In short, this is a 56-year-old female with history of asthma presents to the emergency room for evaluation of productive cough for the past week. She has tried cefazolin, albuterol inhalers, and prednisone without any relief in symptoms. GENERAL: Well-nourished, well-developed female in no acute distress. Afebrile. Ambulatory. SKIN: Focused skin assessment warm/dry. HEAD: Normocephalic. EYES: No scleral icterus. No injection or drainage. NECK: Supple, trachea midline. No JVD or lymphadenopathy. CARDIOVASCULAR: Regular rate and rhythm without murmurs, gallops, or rubs. RESPIRATORY: Breath sounds equal bilaterally. No accessory muscle use. No crackles, Rales, wheezes, or rhonchi. PSYCHIATRIC: No delusional thought processes. No hallucinations. Data Data Last Documented VS Vital Signs Date Time Temp Pulse Resp B/P Pulse Ox O2 Delivery O2 Flow Rate FiO2 05/23/17 14:39 94 Room Air 05/23/17 14:18 98.4 100 14 136/80 Orders Complete Blood Count With Diff (05/23/17 15:04) Comprehensive Metabolic Panel (05/23/17 15:04) B-Type Natriuretic Peptide (05/23/17 15:04) ^ Insert Iv (05/23/17 15:04) Methylprednisolone So Succ Inj (Solumedr (05/23/17 15:15) Albuterol-Ipratropium Neb (Duoneb Neb) (05/23/17 15:15) Chest, Pa & Lat (05/23/17 ) Labs Laboratory Tests Test 05/23/17 15:00 White Blood Count 12.1 TH/MM3 Red Blood Count 5.48 MIL/MM3 Hemoglobin 13.1 GM/DL Hematocrit 41.8 % Mean Corpuscular Volume 76.2 FL Mean Corpuscular Hemoglobin 23.9 PG Mean Corpuscular Hemoglobin 31.4 % Concent Red Cell Distribution Width 15.6 % Platelet Count 302 TH/MM3 Mean Platelet Volume 8.3 FL Neutrophils (%) (Auto) 83.3 % Lymphocytes (%) (Auto) 9.8 % Monocytes (%) (Auto) 4.6 % Eosinophils (%) (Auto) 0.7 % Basophils (%) (Auto) 1.6 % Neutrophils # (Auto) 10.0 TH/MM3 Lymphocytes # (Auto) 1.2 TH/MM3 Monocytes # (Auto) 0.6 TH/MM3 Eosinophils # (Auto) 0.1 TH/MM3 Basophils # (Auto) 0.2 TH/MM3 CBC Comment AUTO DIFF Differential Comment AUTO DIFF CONFIRMED Sodium Level 143 MEQ/L Potassium Level 4.2 MEQ/L Chloride Level 107 MEQ/L Carbon Dioxide Level 27.3 MEQ/L Anion Gap 9 MEQ/L Blood Urea Nitrogen 23 MG/DL Creatinine 0.86 MG/DL Estimat Glomerular Filtration 68 ML/MIN Rate Random Glucose 112 MG/DL Calcium Level 8.9 MG/DL Total Bilirubin 0.3 MG/DL Aspartate Amino Transf 72 U/L (AST/SGOT) Alanine Aminotransferase 111 U/L (ALT/SGPT) Alkaline Phosphatase 98 U/L B-Type Natriuretic Peptide 25 PG/ML Total Protein 7.1 GM/DL Albumin 3.4 GM/DL MDM Medical Record Reviewed: Yes Supervised Visit with LUZ: Yes Differential Diagnosis Bronchitis, asthma, upper respiratory infection, pneumonia Narrative Course Patient signed out to me pending x-ray results. 56-year-old female presents to emergency room for evaluation of productive cough for the past week that is persisting despite antibiotics, inhalers, and prednisone prescribed by her primary care physician. Patient is afebrile and well-appearing in the emergency room. Vital signs stable. Pulse ox 94% on room air. Not coughing. Lung sounds clear and equal bilaterally after treatments. CBC and CMP are essentially unremarkable; very mild leukocytosis. Chest x-ray is negative for acute abnormality, patient made aware of old spinal fractures. Likely viral but with history of asthma, patient will be treated with Levaquin, continuing steroids, and told to follow-up with a levee superintendent. She understands and agrees to plan. Diagnosis Primary Impression: Acute bronchitis Qualified Code: J20.9 - Acute bronchitis, unspecified organism Referrals: Primary Care Physician Dot Compliance Manager Patient Instructions: Acute Bronchitis (ED), General Instructions Additional Instruction: Rest and drink plenty of fluids. Take prednisone as directed, until gone. Take Levaquin as directed, until gone. Follow-up with a levee superintendent. Return to the emergency room for worsening symptoms. Med/Other Pt SpecificInfo: Prescription(s) given Scripts Prednisone 20 Mg Tab40 Mg PO DAILY 4 Days Ref 0 Take 40 mg (2 tablets) daily for 5 days Prov:Madeleine Liriano MD 05/23/17 Levofloxacin 750 Mg [id number] Mg PO DAILY 5 Days Ref 0 Prov:Madeleine Liriano MD 05/23/17 Disposition: 01 DISCHARGE HOME Condition: Stable Letty Snyder May 23, 2017 16:49
== END 2017-05-23 17:00 | disposition home or self-care (01) ==
LOC: PHED 14:08 → PHEFT 17:00
DX: J20.9 Acute bronchitis, unspecified (principal); J45.909 Unspecified asthma, uncomplicated; E78.00 Pure hypercholesterolemia, unspecified; M79.7 Fibromyalgia; G47.30 Sleep apnea, unspecified
CPT/HCPCS: 71020; 80053; 83880; 85025; 94640; 94664; 96374; 99284; J2930

== ENCOUNTER 2017-06-09 12:28 | Emergency (ER) | payer OTHER ==
[~2017-06-09] VITALS: Ht 165.1 cm; Wt 100.0 kg
[~2017-06-09 12:28] MED LIST changes: -ADVA500A INH; +ALBU.5I NEB; +CEFU1TAB20 PO; +CLON0.5T PO; -ERGO1CAP10 PO; -FEXO1TAB97 PO; +GUAI100S5 PO; +HYDR-3516 PO; +LACTCAP8 PO; +LEVO750T3 PO; -LYRI50CA PO; -META1TAB19 PO; +METH750T PO; +MUCI30TA2 PO; +PRED10 PO; +PRED20 PO; -ROBA500T PO; +TYLE325T PO; +VITA100064 PO; -ZOVI5CRE3 TOPICAL
[2017-06-09 12:36] VITALS: BP 138/82; PULSE 87; RESP 15; TEMP 98.6; O2SAT 97
[2017-06-09] MEDS ORDERED: LIDOCAINE HCL 1% 50 ML VIAL ONE (12:53)
--- NOTE | 2017-06-09 12:56 | PD ---
HPI Chief Complaint: Laceration/Skin Injury Time Seen by Provider: 12:52 Travel History International Travel<30 days: No Contact w/Intl Traveler<30days: No Traveled to known affect area: No History of Present Illness HPI 56-year-old female presents emergency room for evaluation of laceration to the left second digit. Patient reports she was attempting to cut up an avocado when the knife slipped cutting her left index finger. She has a 1 cm laceration to the distal aspect of the left index finger. The bleeding is well- controlled. Patient has normal sensation and full range of motion of the digit. Tetanus immunization is up-to-date. PFSH Past Medical History Arthritis: Yes Asthma: Yes (rad) Cardiovascular Problems: Yes (heart murmor) High Cholesterol: Yes Diminished Hearing: No Fibromyalgia: Yes Genitourinary: Yes (Genital Herpes) Musculoskeletal: Yes (DEGENERATIVE DISC DISEASE) Neurologic: Yes (Fibromyalgia, Degenerative disc disease) Respiratory: Yes (Sleep Apnea) Immunizations Current: Yes ?: Not Dilation and Curettage (D&C): Yes (1998) Tubal Ligation: Yes (1998) Past Surgical History Cholecystectomy: Yes (2009) Gynecologic Surgery: Yes (D&C 1998, partial hysterectomy 1998 perineum repair) Hysterectomy: Yes (PARTIAL) Tonsillectomy: Yes Other Surgery: Yes (EPISIOTOMY REPAIR DUE TO TRAMPOLINE INJURY fiberotomy sesamoidectomy lt) Social History Alcohol Use: No Tobacco Use: No Substance Use: No Allergies-Medications (Allergen,Severity, Reaction): Coded Allergies: Adhesives (Verified Allergy, Intermediate, BLISTERS, 06/09/17) Molds and Smuts (Unverified Allergy, Mild, 06/09/17) JUST MOLD Percodan (Verified Allergy, Mild, NOSE ITCHING, 06/09/17) Reported Meds & Prescriptions Reported Meds & Active Scripts Active Reported Methocarbamol 750 Mg Tab 750 Mg PO TID Vitamin D3 (Cholecalciferol) 1,000 Unit Tab 50,000 Units PO WEEKLY Celecoxib 200 Mg Cap 200 Mg PO DAILY Nasacort Allergy 24Hr Nasal [place] (Triamcinolone Acetonide Nasal [place]) 55 Mcg/ Act Spr 1 [place] EACH NARE HS Atorvastatin (Atorvastatin Calcium) 10 Mg Tab 10 Mg PO HS Singulair (Montelukast Sodium) 10 Mg Tab 10 Mg PO HS Vitamin B-Complex 100 Inj (B-Complex Vitamins Inj) 1 Inj Inj IM MONTHLY Effexor (Venlafaxine HCl) 75 Mg Tab 75 Mg PO Q12H Review of Systems Except as stated in HPI: all other systems reviewed are Neg Physical Exam Narrative GENERAL: Well-nourished, well-developed patient. SKIN: Focused skin assessment warm/dry. 1 cm laceration left index finger no tendon injury identified. HEAD: Normocephalic. EYES: No scleral icterus. No injection or drainage. NECK: Supple, trachea midline. No JVD or lymphadenopathy. CARDIOVASCULAR: Regular rate and rhythm without murmurs, gallops, or rubs. RESPIRATORY: Breath sounds equal bilaterally. No accessory muscle use. GASTROINTESTINAL: Abdomen soft, non-tender, nondistended. MUSCULOSKELETAL: No cyanosis, or edema. Left index finger: 1 cm laceration. No tendon injury. Full range of motion. Normal sensation. BACK: Nontender without obvious deformity. No CVA tenderness. Data Data Last Documented VS Vital Signs Date Time Temp Pulse Resp B/P Pulse Ox O2 Delivery O2 Flow Rate FiO2 06/09/17 12:36 98.6 87 15 138/82 97 Orders Lidocaine 1% Inj (50 Ml) (Xylocaine 1% I (06/09/17 12:53) Lidocaine 1% Inj (50 Ml) (Xylocaine 1% I (06/09/17 13:30) MDM Medical Decision Making Medical Screen Exam Complete: Yes Emergency Medical Condition: Yes Differential Diagnosis Finger laceration, unlikely tendon injury, other Narrative Course 56-year-old female with 1 cm laceration to left index finger caused by kitchen knife. No tendon injury is suspected or identified. The wound was repaired. Patient is to keep the sutures in for 7-10 days. Follow up with her primary care provider for removal. Return precautions discussed. Patient verbalizes understanding. Procedures Procedure Narrative LACERATION LOCATION: Left index finger LENGTH: [-] NUMBER OF STITCHES/CHERRI: [2] REPAIR: The area of the laceration was prepped with Betadine and sterilely draped. The laceration was infiltrated with Percent lidocaine. The wound was copiously irrigated and explored without evidence of foreign body, tendon injury or neurovascular injury. The wound was closed using 4-0 Ethilon. This was a single layer repair. A sterile dressing was applied. The patient was advised to keep the dressing clean and dry. Patient tolerated the procedure well. Diagnosis Primary Impression: Finger laceration Qualified Code: S61.211A - Laceration of left index finger without foreign body without damage to nail, initial encounter Referrals: Primary Care Physician Additional Instructions: Do not submerge the wound in water. He may begin showering tomorrow. Keep clean dry dressing on the area. The sutures need to be removed in in 7-10 days Return to the emergency department if he developed increasing pain, redness, swelling at the site. Disposition: 01 DISCHARGE HOME Condition: Stable Melissa Barriga Jun 09, 2017 12:56 Melissa Barriga Jun 09, 2017 12:56
[2017-06-09] MEDS ORDERED: LIDOCAINE HCL 1% 50 ML VIAL INFIL ONE (13:30)
== END 2017-06-09 13:26 | disposition home or self-care (01) ==
LOC: PHEFT 12:28
DX: S61.211A Laceration without foreign body of left index finger without damage to nail, initial encounter (principal); W26.0XXA Contact with knife, initial encounter; Y93.G1 Activity, food preparation and clean up
CPT/HCPCS: 12001